=== PATIENT | male | born 1955 | race Caucasian/White ===

== ENCOUNTER 2021-04-26 10:12 | Observation (INO) | payer BC, OTHER ==
--- NOTE | 2021-04-25 13:18 | PREOP HP ---
DATE OF SERVICE: 04/26/2021 HISTORY OF PRESENT ILLNESS: The patient is a pleasant 65-year-old man who is having difficulty with low back pain and a burning pain in his right leg and foot. He has had previous surgery on his lumbar spine. He did reasonably well from that surgery, but beginning in 12/2020, he developed significant pain after mowing the grass. He says his pain can reach 10/10. Standing and walking increases pain. Sitting in a recliner helps him. He takes Flexeril, Aleve and hydrocodone. He had epidural steroid injections in 01/2021 without improvement. He had physical therapy since 12/2020 without benefit. CURRENT MEDICATIONS: Atenolol, Lotrel, zinc, vitamin C, vitamin D, vitamin B12, aspirin, prednisone, Otezla, hydrocodone, Aleve, Flexeril. PAST MEDICAL HISTORY: Low back pain, osteoarthritis, carpal tunnel syndrome, hypertension, obesity, shingles. PAST SURGICAL HISTORY: Lumbar surgery as mentioned above, carpal tunnel release, knee surgery. FAMILY HISTORY: Hypertension, CHF, stroke. SOCIAL HISTORY: Employed as a automobile mechanic helper. . Does not smoke. Quit drinking alcohol more than 10 years ago. ALLERGIES: SULFA, ANTIBIOTICS AND LATEX. REVIEW OF SYSTEMS: A 12-point review of systems was performed and is noncontributory except that mentioned above. PHYSICAL EXAMINATION: GENERAL: Alert, pleasant, in no acute distress. HEENT: Head is normocephalic, atraumatic. SKIN: Warm and dry, well-healed lumbar incision. MUSCULOSKELETAL: Lumbar paraspinal muscle bulk is normal, restricted range of motion of the lumbar spine, [id number] tenderness of the lower lumbar spine with palpation, normal range of motion of the lower extremities bilaterally. EXTREMITIES: No clubbing, cyanosis or edema. NEUROLOGIC: Alert and oriented x 3. Strength is 5/5 in the lower extremities bilaterally. Sensory was intact to light touch in the lower extremities bilaterally, reflexes were present and symmetric in the lower extremities bilaterally. Negative straight leg raising. Normal gait. IMAGING: I reviewed a lumbar MRI scan from 01/27/2021. On that study, the principal abnormality is at L4-L5. There is moderately severe stenosis and neural foraminal narrowing there. There is also a slight anterolisthesis of L4 and L5. ASSESSMENT AND PLAN: I believe the spinal stenosis and foraminal narrowing at L4-L5 is responsible for his right lumbar radiculopathy. My recommendation at this point is to perform further surgery at this level and fully decompress the nerve root. I did discuss this with him in detail. We spoke about the risk of surgery, and I explained it was possible he may require further surgery in the future. He understands the expected postoperative course. He would like to go ahead. KARYN DR: Sanjuanita TID: [id number]
[2021-04-26] VITALS (8 sets, daily range): BP systolic 117–130; BP diastolic 64–74
[~2021-04-26] VITALS: Ht 177.8 cm; Wt 12.0 kg
[~2021-04-26 10:12] MED LIST: AMLO-187 PO; APRE30TA2 PO; ASPI-630 PO; ATEN50TA PO; BENA20TA84 PO; CYCL10TA19 PO; DEXAMETHASONE SOD PHOS 4 MG/ML VIAL ONE; GLYCOPYRROLATE 1 MG/5 ML VIAL. ONE; HYDR-2761 PO; HYDROmorphone 2 MG/ML INJ. IVP PRN; IV RINGERS,LACTATED 1000ML 1,000 ML IV SCH; LIDOCAINE 2% PF 5 ML VIAL. ONE; MULT-121 PO; NEOSTIGMINE METHYLSULFATE 5 MG/5 ML SYRINGE. ONE; ONDANSETRON PF 4 MG/2 ML VIAL. ONE; PHENYLEPHRINE 10 MG/ML VIAL. ONE; PHENYLEPHRINE in 0.9% NACL PF 1 MG/10 ML SYRINGE. IV ONE; PROCHLORPERAZINE 10 MG/2 ML VIAL. IVP PRN; PROPOFOL 10 MG/ML (20ML) VIAL. IV ONE; PROPOFOL 100 ML IV ONE; REMIFENTANIL 2 MG VIAL. IV ONE; ROCURONIUM 50 MG/5 ML VIAL. ONE; SUCCINYLCHOLINE 200 MG/10 ML VIAL. ONE; ceFAZolin 2GM PREMIX 2 GM/50 ML BAG IV ONE; ceFAZolin SODIUM 1 GM in IV NORMAL SALINE 1000ML BAG 1,000 ML IRR ONE; ePHEDrine PF IN SALINE 50 MG/10 ML SYRINGE. IV ONE; fentaNYL PF VIAL 100 MCG/2 ML VIAL IVP PRN; fentaNYL PF VIAL 100 MCG/2 ML VIAL ONE
[2021-04-26] MEDS ORDERED: BUPIVACAINE-EPI 0.5% 30 ML VIAL KIT. ONE (10:19)
[2021-04-26] MEDS ORDERED: THROMBIN TOPICAL 20,000 UNIT SPRAY.SYRN KIT TP ONE ×2 (10:19→13:34)
[2021-04-26] MEDS ORDERED: KETOROLAC 60 MG/2 ML VIAL. ONE (10:19)
[2021-04-26] MEDS ORDERED: GELATIN SPONGE SIZE 100. ONE (10:19)
[2021-04-26] MEDS ORDERED: PROPOFOL 10 MG/ML (20ML) VIAL. IV ONE (11:12)
[2021-04-26] MEDS ORDERED: DESFLURANE > 120 MINUTES IH ONE (11:17)
[2021-04-26] MEDS ORDERED: PROPOFOL 50 ML IV ONE (12:31)
[2021-04-26] MEDS ORDERED: REMIFENTANIL 1 MG VIAL. IV ONE (13:11)
[2021-04-26] MEDS ORDERED: KETOROLAC 60 MG/2 ML VIAL. INJ ONE (13:34)
[2021-04-26] MEDS ORDERED: GELATIN SPONGE SIZE 100. TP ONE (13:34)
[2021-04-26] MEDS ORDERED: BUPIVACAINE-EPI 0.5% 30 ML VIAL KIT. INJ ONE (13:34)
[2021-04-26] MEDS ORDERED: MAG HYDROX/ALUMINUM HYD/SIMETH 30 ML ORAL.SUSP PO PRN (15:45)
[2021-04-26] MEDS ORDERED: ACETAMINOPHEN 325 MG TABLET. PO PRN (15:45)
[2021-04-26] MEDS ORDERED: fentaNYL PF VIAL 100 MCG/2 ML VIAL IVP PRN (15:45)
[2021-04-26] MEDS: POTASSIUM CL 20MEQ D5-0.45NACL 1,000 ML IV SCH (15:45)
[2021-04-26] MEDS ORDERED: 0.9 % SODIUM CHLORIDE 10 ML DISP.SYRIN. IV PRN (15:45)
[2021-04-26] MEDS ORDERED: CALCIUM CARBONATE 500 MG TAB.CHEW PO PRN (15:45)
[2021-04-26] MEDS ORDERED: NALOXONE 0.4 MG/ML VIAL. IV PRN (15:45)
[2021-04-26] MEDS ORDERED: HYDROcodone/APAP 5/325MG 1 TAB TABLET PO PRN (15:45)
[2021-04-26] MEDS ORDERED: diphenhydrAMINE HCL 25 MG CAPSULE PO PRN (15:45)
[2021-04-26] MEDS ORDERED: CYCLOBENZAPRINE 10 MG TABLET. PO PRN (15:45)
[2021-04-26] MEDS ORDERED: MAGNESIUM HYDROXIDE 2,400 MG/30 ML ORAL.SUSP. PO PRN (15:45)
[2021-04-26] MEDS ORDERED: fentaNYL PF VIAL 100 MCG/2 ML VIAL ONE (15:58)
[2021-04-26] MEDS: fentaNYL PF VIAL 100 MCG/2 ML VIAL IVP PRN ×2 (16:01→16:06)
[2021-04-26] MEDS ORDERED: MORPHINE SULFATE 2 MG/ML INJ. ONE (16:10)
[2021-04-26] MEDS: MORPHINE SULFATE 2 MG/ML INJ. IVP PRN ×2 (16:12→16:21)
[2021-04-26] MEDS: NON FORMULARY ITEM (Apremilast (Otezla) 30 MG) PO SCH (18:03)
[2021-04-26] MEDS: DOCUSATE SODIUM 100 MG CAPSULE. PO SCH (21:37)
[2021-04-26] MEDS: HYDROcodone/APAP 5/325MG 1 TAB TABLET PO PRN (21:37)
--- NOTE | 2021-04-27 03:12 | OP ---
DATE OF SURGERY: 04/26/2021 PREOPERATIVE DIAGNOSES: Severe lumbar spinal stenosis at L4-L5 with severe right lumbar radiculopathy. POSTOPERATIVE DIAGNOSES: Severe lumbar spinal stenosis at L4-L5 with severe right lumbar radiculopathy. OPERATION PERFORMED: Hemilaminotomy L4-L5, right. The operation was done with EMG monitoring, SSEP monitoring, fluoroscopy, microscopic dissection. SURGEON: Jakob Wheeler M.D. FLIGHT TEST MECHANIC: FAVIOLA Lacy; assisted with the surgery. She assisted with the exposure, the microdecompression as well as the closure. OPERATIVE INDICATIONS: The patient is a pleasant 65-year-old, who developed intractable back and right leg pain that failed conservative measures. On imaging studies, he had the above-mentioned findings. About 13 years ago, he underwent a laminectomy of L4-L5 and L5-S1 and had done well from that surgery. On his imaging studies, some of the preop evidence was still present, although he developed massive hypertrophic facets with severe right sided lateral recess and neural foraminal narrowing at L4-L5. I recommended, after he failed conservative measures, lumbar microsurgery, I spoke with him about the risks and technique, the expected postoperative course and he wished me to go ahead. DESCRIPTION OF PROCEDURE: Following general endotracheal anesthesia, the patient was positioned prone on the Moises table. Lumbar region prepped and draped in standard fashion. LUIGI hose and AV impulse boots were applied for DVT prophylaxis. A microscope was draped, fluoroscopy was draped and brought into the field. Monitoring was established. Ancef 2 grams given less than one hour prior to initiation of the surgery. Using fluoroscopic guidance, a midline incision was made, dissected down through skin and subcutaneous tissue, reflected the paraspinal muscles and placed a self-retaining retractor, brought in the microscope and using high speed air drill. I went to the medial aspect of his previous laminectomy, which was quite near the midline. I then drilled bone away from medial to lateral and inferior to superiorly and decompressed the region. I then peeled away as much as I could the very thickened and calcified ligament which was densely scarred to the underlying dura, but I was able to free this partially and remove it. The dura moved back very nicely. There was no disc herniation, a discectomy was not required. I did explore carefully. The roots were very free. I irrigated with antibiotic solution. I then closed the wound in layers with absorbable suture. The skin was closed with 4-0 subcuticular stitch. I felt the surgery went very well. BILL/ROULA/YORDY DR: Yannick TID: [id number] MTDD
[2021-04-27 03:32] VITALS: BP 122/68
[2021-04-27] MEDS: HYDROcodone/APAP 5/325MG 1 TAB TABLET PO PRN ×2 (04:19→12:04)
[2021-04-27] MEDS: POTASSIUM CL 20MEQ D5-0.45NACL 1,000 ML IV SCH (04:55)
[2021-04-27 07:00] VITALS: BP 139/76
[2021-04-27] MEDS: NON FORMULARY ITEM (Apremilast (Otezla) 30 MG) PO SCH (09:00)
[2021-04-27] MEDS ORDERED: MULTIVITAMIN with MINERAL TABLET. PO SCH (09:00)
[2021-04-27] MEDS ORDERED: ATENOLOL 50 MG TABLET. PO SCH (09:00)
[2021-04-27] MEDS ORDERED: LISINOPRIL 20 MG TABLET PO SCH (09:00)
[2021-04-27] MEDS ORDERED: ASPIRIN CHEWABLE 81 MG TABLET. PO SCH (09:00)
[2021-04-27] MEDS: DOCUSATE SODIUM 100 MG CAPSULE. PO SCH (09:33)
--- NOTE | 2021-04-27 10:04 | DISCH ---
DISCHARGE INSTRUCTIONS Condition on Discharge Condition on Discharge: Stable Activity After Discharge Activity Instructions for Disc: Activity as tolerated, Avoid exertion Bathing Instructions: Shower-keep dressing dry, No Tub Bath until see Lifting Instructions after Dis: No heavy lifting, No pulling or pushing, Do not lift >10 pounds Diet after Discharge Additional Diet Restrictions: resume home diet Wound Incision Care Wound/Incision Care: Ice to area for comfort Other wound/incision instructi: may remove dressing in 48 hours if dry, no soaking Contacting the DRRosita after DC Call your doctor for: Concerns you may have Follow-Up Follow up with: Dr. Wong's nurse in 2 weeks [phone] DAILY WONG MD Apr 27, 2021 10:04
[2021-04-27 11:00] VITALS: BP 144/80
--- NOTE | 2021-04-27 13:06 | NUR ---
Discharge Note: KAMAR HICKS V 4 HARMONY Discharge instructions and discharge home medications reviewed with Patient and a copy given. All questions have been answered and understanding verbalized. The following instructions and handouts were given: Diet, activity, medication list and follow up instructions provided to patient. Discontinued lines and drains: Peripheral IV discontinued and catheter intact. Patient discharged to Home or Self Care with Spouse via Wheelchair
--- NOTE | 2021-04-27 14:27 | DS ---
DATE OF DISCHARGE: 04/27/2021 DISCHARGE DIAGNOSIS: Severe lumbar spinal stenosis, L4-L5 with severe right lumbar radiculopathy. OPERATIONS PERFORMED: Hemilaminotomy and microdiskectomy, L4-L5, right. ASSESSMENT AND PLAN: The patient is a pleasant 65-year-old who developed intractable back and right leg pain that failed conservative measures. On imaging studies, he had the above-mentioned findings. About 13 years ago, he underwent a laminectomy at L4-L5 and L5-S1 and had done well from that surgery. On his imaging studies, some of that preop evidence was still present, although he had developed massive hypertrophic facets with severe right-sided lateral recess and neural foraminal narrowing at L4-L5. I spoke with him about conservative measures and lumbar microsurgery. He understood the surgery and the risk and the technique as well as the expected postoperative course and wished to go ahead. HOSPITAL COURSE: He was admitted to the floor, where he has done well. He has been up ambulating in the room and in the halls. Physical therapy was initiated and instruction was given to him regarding his activities. He is in good condition to discharge home. DISCHARGE MEDICATIONS: He will resume his medications per the MRAD. DISCHARGE INSTRUCTIONS: He was instructed regarding incision care, activity restrictions and expectations for the next several weeks. He will follow up in our office in 2 weeks. He understands to call with any questions or concerns. KARYN DAVALOS: Sanjuanita TID: [id number]
--- NOTE | 2021-04-28 16:10 | PATHOLOGY ---
[facility] Accession Number: [id number] . 01 Material submitted: . vertebral column - LUMBAR DECOMPRESSION . 01 Clinical history: . LUMBAR STENOSIS AND RADICULOPATHY . 02 Diagnosis: Segments of fibrocartilaginous, fibroadipose, and skeletal muscle tissue and bone, lumbar decompression: - Degenerative changes of fibrocartilaginous tissue. (JPM:pit; 04/28/2021) [facility] [place] 04/28/2021 1405 Local . 02 Comment: There is no evidence of an acute inflammatory process or malignancy. (JPM:pit; 04/28/2021) . 02 Electronically signed: . Percy Richard MD, Pathologist NPI- [id number] . 01 Gross description: . The specimen is received in formalin, labeled "Yusuf Ramiro, lumbar decompression". Received are multiple segments of pale solano to pink-solano fibrous tissue admixed with fragments of gritty bone measuring 2.5 x 2.3 x 0.5 cm in aggregate dimensions. The specimen is submitted representatively in cassette A1, following light decalcification. ([facility]; 04/27/2021) NRI/NRI 04/27/2021 1938 Local . 02 Pathologist provided ICD-10: M99.73, M54.10 . 02 CPT . 113869, [id number] Specimen Comment: A courtesy copy of this report has been sent to [phone] Specimen Comment: Report sent to Specimen Comment: A duplicate report has been generated due to demographic updates. Performed at: [address], [place], [place] [id number] MD Nitin Rankin MD Phone: [phone] Performed at: [address] [facility] [address] [place], [place] [id number] MD Percy Richard MD Phone: [phone]
== END 2021-04-27 13:05 | disposition home or self-care (01) ==
LOC: SURG 10:12 → 4 NORTH 15:48
PROVIDERS: ADMIT Neurological Surgery; ATTEND Neurological Surgery
DX: M48.062 Spinal stenosis, lumbar region with neurogenic claudication (principal); I10 Essential (primary) hypertension; M54.16 Radiculopathy, lumbar region; M19.90 Unspecified osteoarthritis, unspecified site; E66.9 Obesity, unspecified; B02.9 Zoster without complications; Z79.899 Other long term (current) drug therapy; Z98.890 Other specified postprocedural states; Z68.30 Body mass index [BMI] 30.0-30.9, adult
CPT/HCPCS: 63042; 88304; 88311; 97116; 97162; 97530; A4364; A4930; A6254; A6258; G0378; G0379; J0330; J0690; J1100; J1885; J2370; J2405; J2704; J2710; J3010; J3490; J7030; Q0163; 76000; A4223